=== PATIENT | male | born 1970 | race Caucasian/White ===

== ENCOUNTER 2019-11-11 08:48 | Emergency (ER) | payer OTHER ==
[~2019-11-11] VITALS: Ht 167.6 cm; Wt 90.7 kg
[2019-11-11 09:31] LABS: ABSOLUTE NEUTROPHILS 3.8 thou/uL (1.4-8.2); BASOPHILS 0.7 % (0.0-2.0); EOSINOPHILS 1.4 % (0.0-3.0); HEMATOCRIT 42.7 % (42.0-52.0); HEMOGLOBIN 14.5 gm/dL (14.0-18.0); LYMPHOCYTES 18.8 % (24.0-44.0); MCHC 33.9 g/dL (28.0-37.0); MCV 85.4 fL (80.0-100.0); MONOCYTES 10.8 % (1.0-8.0); PLATELET COUNT 168 thou/uL (150-400); POLYS 68.3 % (36.0-66.0); RDW 13.5 % (10.5-14.5); WBC 5.5 thou/uL (4.0-11.0)
[2019-11-11 09:37] LABS: ANION GAP 12 mmol/L (7-16); BUN 7 mg/dL (7-18); CALCIUM 8.1 mg/dL (8.5-10.1); CHLORIDE 104 mmol/L (98-107); CO2 23 mmol/L (21-32); CREATININE 0.9 mg/dL (0.7-1.3); GLUCOSE 99 mg/dL (74-106); POTASSIUM 3.8 mmol/L (3.5-5.1); SODIUM 139 mmol/L (136-145)
[2019-11-11 09:47] LABS: TROPONIN-I <0.06 ng/mL (<0.06)
[2019-11-11] MEDS ORDERED: LISINOPRIL2.5 MG PO (09:57)
[2019-11-11] MEDS ORDERED: LIPITOR 10 MG10 M1 PO (09:57)
[2019-11-11 12:29] VITALS: BP 121/80
--- NOTE | 2019-11-12 08:42 | EKG ---
[facility] [place] [address] ELECTROCARDIOGRAM REPORT Name: TOVERONICA [id number] Admission: 11/11/19 Attend Phys: Discharge: 11/11/19 Date of : 70 Report #: [id number] THIS REPORT FOR: cc: Giovanni Payne MD, Simon J. MD Santiago, Patrick MD [facility] ~ THIS REPORT FOR: //name// [facility] ED Test Date: 2019-11-11 Test Time: 10:03:21 Pat Name: VERONICA TO Department: Room: Gender: Skate Maker: no : 1970 Requested By: Alexsander Montez Order Number: [id number] MD: Hugh Cobb Measurements Intervals [place] Rate: 96 P: 38 [place]: 168 QRS: -20 QRSD: 99 T: 76 QT: 356 QTc: 450 Interpretive Statements Sinus rhythm Abnormal R-wave progression, early transition Probable left ventricular hypertrophy Compared to ECG 11/11/2019 09:22:35 Sinus tachycardia no longer present ST (T wave) deviation no longer present Electronically Signed On 11-12-2019 8:42:27 CDT by Hugh Cobb [email or web address] <ELECTRONICALLY SIGNED> By: Hugh Cobb MD, FAC 11/12/19 0842 [id number] Hugh Cobb MD, [facility] /EPI
--- NOTE | 2019-11-12 09:28 | EKG ---
[facility] [place] [address] ELECTROCARDIOGRAM REPORT Name: VERONICA TO Room #: DEP [facility]#: [id number] Admission: 11/11/19 Attend Phys: Discharge: 11/11/19 Date of : 70 Report #: [id number] THIS REPORT FOR: cc: Giovanni Payne MD, Simon J. MD Lundgren,Curtis Christianson MD [facility] ~ THIS REPORT FOR: //name// [facility] ED Test Date: 2019-11-11 Test Time: 09:22:35 Pat Name: VERONICA TO Department: Room: Gender: [employer] Operator: no : 1970 Requested By: Alexsander Montez Order Number: [id number] MD: Curtis Blanco Measurements Intervals [place] Rate: 106 P: 35 [place]: 172 QRS: -16 QRSD: 94 T: 76 QT: 343 QTc: 456 Interpretive Statements Sinus tachycardia Borderline left axis deviation Abnormal R-wave progression, early transition Minimal ST depression, lateral leads No previous ECG available for comparison Electronically Signed On 11-12-2019 9:27:48 CDT by Curtis Blanco [email or web address] <ELECTRONICALLY SIGNED> By: Curtis Blanco MD, [facility] 11/12/19926 1 1 Curtis Blanco MD, [facility] /EPI
== END 2019-11-11 12:29 | disposition home or self-care (01) ==
LOC: ER 08:48
PROVIDERS: Emergency Medicine
DX: R07.9 Chest pain, unspecified (principal); R51 Headache; R00.0 Tachycardia, unspecified; Z79.899 Other long term (current) drug therapy